=== PATIENT | female | born 1975 | race Hispanic/Latino ===

== ENCOUNTER 2017-03-13 21:26 | Emergency (ER) | payer SELFPAY ==
[2017-03-13 22:25] LABS: Bilirubin Negative (Negative); Blood, Urine Trace (Negative); Glucose, Urine (Dipstick) Negative (Negative); Ketone, Urine Negative (Negative); Nitrite Negative (Negative); Protein, Urine (Dipstick) Negative (Neg-Trace); Urobilinogen 0.2 mg/dL (0.2-1.0)
[2017-03-13 22:31] LABS: Bacteria/HPF Rare-Few HPF (None Seen); Hyaline Casts/LPF 0-3 HYALINE CAST LPF (0-3 Hyaline); Squamous Epithelial 0-3 HPF (0-3); WBC/HPF 0-3 HPF (0-3)
[2017-03-14 00:53] LABS: #Basophils 0.1 thou/uL (0.0-0.2); #Eosinphils 0.1 thou/uL (0.0-0.7); #Lymphocytes 4.3 thou/uL (1.20-3.40); #Monocytes 0.9 thou/uL (0.11-0.59); %Basophils 0.6 % (0.0-1.0); %Lymphocytes 31.9 % (21.0-51.0); %Monocytes 6.3 % (0.0-10.0); Hematocrit 42.5 % (36.0-47.0); Mean Platelet Volume 10.1 fL (7.4-10.4); Red Blood Cell (RBC) Count 5.24 mill/uL (4.20-5.40); White Blood Cell (WBC) Count 13.3 thou/uL (4.8-10.8)
[2017-03-14 01:13] LABS: ALT (SGPT) 13 U/L (8-55); AST (SGOT) 10 U/L (5-34); Alkaline Phosphatase 84 U/L (40-150); Anion Gap 12 mmol/L (10-20); BUN (Urea Nitrogen) 11 mg/dL (7.0-18.7); Bilirubin, Total 0.3 mg/dL (0.2-1.2); Calc. Creatinine Clearance 0 mL/min (70-130); Calcium 8.9 mg/dL (7.8-10.44); Carbon Dioxide 23 mmol/L (22-29); Chloride 106 mmol/L (98-107); Estimated GFR-MDRD Greater than 90; Globulin 3.2 g/dL (2.4-3.5); Lipase 13 U/L (8-78); Protein, Total 7.1 g/dL (6.0-8.3)
[2017-03-14] MEDS ORDERED: Ketorolac Tromethamine 30 MG/ML VIAL ONE (02:05)
--- NOTE | 2017-03-14 08:33 | ULT ---
PRELIMINARY REPORT/[facility]/EMERGENCY AFTER HOURS PROCEDURE: EXAM: US Abdomen Limited, Right Upper Quadrant EXAM DATE/TIME: Exam ordered 03/14/2017 12:56 AM CLINICAL HISTORY: 41 years old, female; Pain; Other: Upper abd pain x 4-5 days TECHNIQUE: Real-time ultrasound of the right upper quadrant with image documentation. COMPARISON: No relevant prior studies available. FINDINGS: Liver: Hepatic steatosis. No intrahepatic bile duct dilation. Gallbladder: Unremarkable. No gallstones. Common bile duct: Unremarkable as visualized. No stones. No dilation. Pancreas: Unremarkable as visualized. Right kidney: Minimal hydronephrosis of the right kidney. Right ureteral jet present. No stones. IMPRESSION: Minimal hydronephrosis of the right kidney. Right ureteral jet present. Thank you for allowing us to participate in the care of your patient. Dictated and Authenticated by: Quang Atkinson MD 03/14/2017 1:33 AM Central Time ([place] \T\ [place]) FINAL REPORT EMERGENCY AFTER HOURS STUDY ULTRASOUND ABDOMEN LIMITED: (RIGHT UPPER QUADRANT) HISTORY: 41-year-old female with upper abdominal pain for 4-5 days. FINDINGS: The gallbladder has normal wall thickness and has no evidence of gallstones or sludge. The hepatic e chogenicity is diffusely increased, consistent with fatty liver. Minimal hydronephrosis of right kid richard (however, bilateral ureteral jets present in the bladder indicating that any obstruction is not high grade). The pancreas is visualized, although ultrasound is relatively insensitive for pancreati c pathology compared to CT and MRI. There is no biliary dilation. The common duct caliber is 4 mm. This report agrees with the preliminary report by [facility]. IMPRESSION: 1. Hepatic steatosis. 2. Minimal right hydronephrosis. antonia [] POS: [facility]
--- NOTE | 2017-03-14 08:42 | RAD ---
RADIOGRAPH CHEST 1 VIEW RADIOGRAPH ABDOMEN 2 VIEWS: HISTORY: 41-year-old female with generalized abdominal pain, with 1 week with nausea and anorexia. FINDINGS: The visualized lung rondon are clear. The cardiomediastinal silhouette and hilar shadows are normal . The lateral costophrenic angles are sharp. The osseous structures appear normal. There is no ev idence of pneumothorax or pneumoperitoneum. The bowel gas pattern is normal, with no evidence of small bowel dilation or differential air/fluid levels. There is no evidence of organomegaly. IMPRESSION: Negative. jn [] POS: [facility]
== END 2017-03-14 03:25 | disposition home or self-care (01) ==
LOC: ERS 21:26
DX: N13.2 Hydronephrosis with renal and ureteral calculous obstruction (principal); F41.9 Anxiety disorder, unspecified
CPT/HCPCS: 36415; 74022; 76705; 80053; 81003; 81015; 83690; 84703; 85025; 96372; J1885

== ENCOUNTER 2017-12-03 21:31 | Emergency (ER) | payer SELFPAY ==
[2017-12-03] MEDS ORDERED: traMADol HCl 50 MG TAB ONE (21:58)
--- NOTE | 2017-12-03 22:17 | RAD ---
RADIOGRAPH RIGHT LEG TIBIA AND FIBULA 2 VIEWS: 12/03/17 HISTORY: 42-year-old female with traumatic right leg pain. FINDINGS: There is no fracture or any other osseous abnormality involving the tibia or fibula. IMPRESSION: Negative. POS: [facility]
== END 2017-12-03 22:44 | disposition home or self-care (01) ==
LOC: ERS 21:31
DX: S80.11XA Contusion of right lower leg, initial encounter (principal); F41.9 Anxiety disorder, unspecified; W22.8XXA Striking against or struck by other objects, initial encounter

== ENCOUNTER 2018-01-07 19:11 | Emergency (ER) | payer SELFPAY | END 2018-01-07 20:18 | disposition home or self-care (01) | LOC: SCSER 19:11 | DX: G56.01 Carpal tunnel syndrome, right upper limb (principal); F41.9 Anxiety disorder, unspecified | CPT/HCPCS: 99283 ==

== ENCOUNTER 2018-03-03 10:52 | Outpatient (CLI) | payer MEDICAID | END 2018-03-03 10:53 | disposition home or self-care (01) | LOC: BICRAD 10:52 | PROVIDERS: ATTEND Family Medicine | DX: M25.531 Pain in right wrist (principal); M25.521 Pain in right elbow; M25.511 Pain in right shoulder ==

== ENCOUNTER 2018-03-22 19:46 | Emergency (ER) | payer MEDICAID ==
[2018-03-22 20:22] LABS: #Basophils 0.1 thou/uL (0.0-0.2); #Eosinphils 0.1 thou/uL (0.0-0.7); #Lymphocytes 4.5 thou/uL (1.20-3.40); #Monocytes 0.8 thou/uL (0.11-0.59); #Neutrophils 10.6 thou/uL (1.40-6.50); %Basophils 0.4 % (0.0-1.0); %Eosinophils 0.8 % (0.0-10.0); %Lymphocytes 27.7 % (21.0-51.0); %Monocytes 4.8 % (0.0-10.0); %Neutrophils 66.2 % (42.0-75.0); Hemoglobin 14.6 g/dL (12.0-16.0); Mean Corpuscular Volume 78.6 fL (78.0-98.0); Mean Platelet Volume 10.8 fL (7.4-10.4); Platelet Count 229 thou/uL (130-400); RBC Distribution Width 13.2 % (11.5-14.5)
[2018-03-22 20:42] LABS: ALT (SGPT) 12 U/L (8-55); AST (SGOT) 14 U/L (5-34); Albumin 4.7 g/dL (3.5-5.0); Alkaline Phosphatase 95 U/L (40-150); Anion Gap 17 mmol/L (10-20); BUN (Urea Nitrogen) 8 mg/dL (7.0-18.7); Bilirubin, Total 0.3 mg/dL (0.2-1.2); CK (CPK) 36 U/L (29-168); Calc. Creatinine Clearance 0 mL/min (70-130); Calcium 9.8 mg/dL (7.8-10.44); Carbon Dioxide 24 mmol/L (22-29); Chloride 102 mmol/L (98-107); Estimated GFR-MDRD 74; Globulin 3.9 g/dL (2.4-3.5); Glucose 115 mg/dL (70-105); Potassium 3.1 mmol/L (3.5-5.1); Protein, Total 8.6 g/dL (6.0-8.3); Sodium 140 mmol/L (136-145)
[2018-03-22 20:46] LABS: CKMB 0.4 ng/mL (0-6.6); Troponin I Less than 0.010 ng/mL (< 0.028)
--- NOTE | 2018-03-22 20:56 | RAD ---
PORTABLE CHEST ONE VIEW: 03/22/2018 7:28 p.m. HISTORY: Chest pain. Palpitations. COMPARISON: 07/18/2016 FINDINGS: The heart size is normal. The lungs are well expanded without focal areas of consolidation, pneumoth oraces, or pleural effusions. IMPRESSION: No acute process. POS: [facility]
== END 2018-03-22 21:50 | disposition home or self-care (01) ==
LOC: ERS 19:46
DX: I10 Essential (primary) hypertension (principal); F41.9 Anxiety disorder, unspecified; D72.829 Elevated white blood cell count, unspecified
CPT/HCPCS: 71045; 80053; 82550; 82553; 84484; 85025; 85379; 93005; 94760

== ENCOUNTER 2019-06-27 19:03 | Emergency (ER) | payer MEDICAID, SELFPAY ==
[2019-06-27 19:40] LABS: Bacteria/HPF None Seen HPF (None Seen); Bilirubin Negative (Negative); Blood, Urine 3+ (Negative); Clarity Clear (Clear); Glucose, Urine (Dipstick) Normal (Negative); Leukocyte Negative Leu/uL (Negative); Nitrite Negative (Negative); Protein, Urine (Dipstick) Negative (Neg-Trace); RBC/HPF Greater than 50 HPF (0-3); Squamous Epithelial 0-3 HPF (0-3); Urobilinogen Normal mg/dL (Less than 2)
[2019-06-27 19:40] LABS: #Basophils 0.1 thou/uL (0.0-0.2); #Eosinphils 0.1 thou/uL (0.0-0.7); #Lymphocytes 4.2 thou/uL (1.20-3.40); #Monocytes 0.6 thou/uL (0.11-0.59); #Neutrophils 6.3 thou/uL (1.40-6.50); %Basophils 0.5 % (0.0-1.0); %Lymphocytes 37.4 % (21.0-51.0); %Monocytes 5.2 % (0.0-10.0); %Neutrophils 55.8 % (42.0-75.0); Hemoglobin 13.5 g/dL (12.0-16.0); Mean Corpuscular Hemoglobin 25.6 pg (27.0-31.0); Mean Corpuscular Volume 77.6 fL (78.0-98.0); Mean Platelet Volume 11.3 fL (7.4-10.4); Platelet Count 223 thou/uL (130-400); RBC Distribution Width 12.9 % (11.5-14.5); Red Blood Cell (RBC) Count 5.27 mill/uL (4.20-5.40); White Blood Cell (WBC) Count 11.3 thou/uL (4.8-10.8)
[2019-06-27 19:41] LABS: Pregnancy Test - Urine (BHCG) Negative (Negative); Pregu Control Background? CLEAR/WHITE (CLR/WHITE); Pregu Control Bar Appear? YES (CONTROL BAR); Specific Gravity 1.017 (1.002-1.036)
[2019-06-27 20:01] LABS: ALT (SGPT) 12 U/L (8-55); AST (SGOT) 11 U/L (5-34); Albumin 4.3 g/dL (3.5-5.0); Alkaline Phosphatase 98 U/L (40-110); Anion Gap 11 mmol/L (10-20); BUN (Urea Nitrogen) 10 mg/dL (7.0-18.7); Bilirubin, Total Less than 0.2 mg/dL (0.2-1.2); Calc. Creatinine Clearance 0 mL/min (70-130); Calcium 9.1 mg/dL (7.8-10.44); Carbon Dioxide 27 mmol/L (22-29); Chloride 104 mmol/L (98-107); Estimated GFR-MDRD Greater than 90; Globulin 2.8 g/dL (2.4-3.5); Glucose 117 mg/dL (70-105); Potassium 3.3 mmol/L (3.5-5.1); Protein, Total 7.1 g/dL (6.0-8.3); Sodium 139 mmol/L (136-145)
[2019-06-27] MEDS ORDERED: Ibuprofen 800 MG TAB ONE (20:14)
== END 2019-06-27 20:29 | disposition home or self-care (01) ==
LOC: ERS 19:03
DX: N93.9 Abnormal uterine and vaginal bleeding, unspecified (principal); F41.9 Anxiety disorder, unspecified
CPT/HCPCS: 36415; 80053; 81003; 81015; 81025; 85025; 86900; 86901; 99284

== ENCOUNTER 2020-10-29 12:48 | Outpatient (CLI) | payer OTHER | END 2020-10-29 12:49 | disposition home or self-care (01) | LOC: BICRAD 12:48 | PROVIDERS: ATTEND Family Medicine | DX: J18.9 Pneumonia, unspecified organism (principal); J01.41 Acute recurrent pansinusitis; J45.41 Moderate persistent asthma with (acute) exacerbation | CPT/HCPCS: 70220; 71046 ==

== ENCOUNTER 2021-08-12 15:46 | Outpatient (CLI) | payer BC, MEDICAID | END 2021-08-12 15:47 | disposition home or self-care (01) | LOC: BICMAMMO 15:46 | PROVIDERS: ATTEND Nurse Practitioner Women's Health | DX: Z12.31 Encounter for screening mammogram for malignant neoplasm of breast (principal) | CPT/HCPCS: 77063; 77067 ==

== ENCOUNTER 2021-12-23 14:09 | Emergency (ER) | payer BC, MEDICAID ==
[2021-12-23] MEDS ORDERED: Ketorolac Tromethamine 30 MG/ML VIAL ONE (14:35)
== END 2021-12-23 16:25 | disposition home or self-care (01) ==
LOC: ERS 14:09
DX: M25.461 Effusion, right knee (principal); M25.561 Pain in right knee; Z79.899 Other long term (current) drug therapy
CPT/HCPCS: 96372; J1885

== ENCOUNTER 2022-09-27 06:44 | Emergency (ER) | payer BC ==
[2022-09-27] MEDS ORDERED: Ketorolac Tromethamine 30 MG/ML VIAL ONE (07:15)
[2022-09-27] MEDS ORDERED: Dexamethasone 10 MG/ML VIAL ONE (07:15)
== END 2022-09-27 08:11 | disposition home or self-care (01) ==
LOC: ERS 06:44
DX: J02.9 Acute pharyngitis, unspecified (principal); J32.9 Chronic sinusitis, unspecified
CPT/HCPCS: 87081; 87430; 96372; 99283; J1100; J1885

== ENCOUNTER 2023-02-05 08:15 | Outpatient (CLI) | payer BC | END 2023-02-05 08:16 | disposition home or self-care (01) | LOC: BICMRI 08:15 | PROVIDERS: ATTEND Orthopaedic Surgery | DX: M47.22 Other spondylosis with radiculopathy, cervical region (principal); M50.122 Cervical disc disorder at C5-C6 level with radiculopathy; G95.89 Other specified diseases of spinal cord; M50.123 Cervical disc disorder at C6-C7 level with radiculopathy | CPT/HCPCS: 72141 ==

== ENCOUNTER 2023-05-21 16:46 | Outpatient (CLI) | payer BC ==
[2023-05-21 17:33] LABS: BHCG - Serum Negative (NEGATIVE); Pregs Control Background? CLEAR/WHITE (CLR/WHITE); Pregs Control Bar Appear? YES (CONTROL BAR)
== END 2023-05-21 16:47 | disposition home or self-care (01) ==
LOC: LABBT 16:46
PROVIDERS: ATTEND Neurological Surgery
DX: M54.10 Radiculopathy, site unspecified (principal)
CPT/HCPCS: 84703; 93005; 93010

== ENCOUNTER 2023-08-28 16:41 | Emergency (ER) | payer BC ==
[2023-08-28] MEDS ORDERED: predniSONE 20 MG TAB ONE ×2 (17:16→17:17)
[2023-08-28] MEDS ORDERED: Ibuprofen 800 MG TAB ONE (17:16)
[2023-08-28] MEDS ORDERED: Promethazine 25 MG TAB ONE (17:16)
[2023-08-28] MEDS ORDERED: Ibuprofen 200 MG TAB ONE ×2 (17:18→17:21)
== END 2023-08-28 17:48 | disposition home or self-care (01) ==
LOC: ERS 16:41
DX: J06.9 Acute upper respiratory infection, unspecified (principal); I10 Essential (primary) hypertension; Z79.899 Other long term (current) drug therapy
CPT/HCPCS: 71045; J7512; Q0169